=== PATIENT | male | born 1960 | race Caucasian/White ===

== ENCOUNTER 2019-09-27 22:25 | Inpatient (IN) | payer OTHER ==
[~2019-09-27] VITALS: Ht 172.7 cm; Wt 68.0 kg
[~2019-09-27 22:25] MED LIST: BUPROBAN150 MG PO; CLEOCIN HCL300 MG PO; CLOZAPINE100 M1 PO; CLOZAPINE200 MG PO; CLOZAPINE25 MG PO; DIABETA 5MG TABL5 MG GT; GLUCOTROL10 MG PO; GLUMETZA500; HYDROCHLOROTH12.5 MG PO; IRON325 M1 PO; LANTUS SOL100 UNIT/1 SQ; LIPITOR40 MG PO; LISINOPRIL2.5 MG PO; METFORMIN HCL1000 MG PO; ZOLOFT100 MG PO
[2019-09-27 22:35] VITALS: BP 160/86
[2019-09-27 23:05] LABS: HEMATOCRIT 34.5 % (42.0-52.0); HEMOGLOBIN 11.4 gm/dL (14.0-18.0); MCH 30.1 pg (26.0-34.0); MCV 91.3 fL (80.0-100.0); PLATELET COUNT 92 thou/uL (150-400); RBC 3.78 mil/uL (4.50-6.00); RDW 16.4 % (10.5-14.5); WBC 2.4 thou/uL (4.0-11.0)
[2019-09-27 23:13] LABS: CALCIUM 8.8 mg/dL (8.5-10.1); CREATININE 1.1 mg/dL (0.7-1.3); POTASSIUM 3.5 mmol/L (3.5-5.1)
[2019-09-27 23:15] LABS: APTT 35.2 Seconds (24.5-32.8); INR 1.1; PROTIME 10.8 Seconds (9.3-11.4)
[2019-09-27 23:20] LABS: ALBUMIN 3.3 g/dL (3.4-5.0); DIRECT BILIRUBIN 0.2 mg/dL (<0.1-0.2); TOTAL BILIRUBIN 0.5 mg/dL (<0.1-1.0); TOTAL PROTEIN 7.1 g/dL (6.4-8.2)
[2019-09-27 23:39] LABS: ABSOLUTE NEUTROPHILS 1.9 thou/uL (1.4-8.2)
[2019-09-27 23:40] LABS: ANISOCYTOSIS 1+; OVALOCYTES 1+; PLATELET ESTIMATE DECREASED
[2019-09-28 00:07] LABS: URINE BILIRUBIN NEGATIVE (Negative); URINE BLOOD 3+ (Negative); URINE CLARITY CLEAR; URINE COLOR YELLOW; URINE GLUCOSE-RANDOM* 2+ (Negative); URINE KETONES 1+ (Negative); URINE LEUKOCYTES-REFLEX NEGATIVE (Negative); URINE NITRITE-REFLEX NEGATIVE (Negative); URINE PROTEIN (DIPSTICK) TRACE (Negative); URINE UROBILINOGEN 0.2 E.U./dl (0.2-1.0)
[2019-09-28 00:17] LABS: BACTERIA-REFLEX None Seen /HPF (None Seen); CRYSTALS None Seen /LPF (None Seen); HYALINE CASTS 0-3 Few /LPF (None Seen); MUCUS None Seen strn/LPF (None Seen); SQUAMOUS 0-3 Few /LPF (0-3); URINE RBC 0-2 Rare /HPF (0-2); URINE WBC-REFLEX None Seen /HPF (0-5)
[2019-09-28] MEDS ORDERED: REVLIMID5 MG PO (01:01)
[2019-09-28] MEDS ORDERED: ASA81BEC PO (03:08)
[2019-09-28 05:14] LABS: HEMATOCRIT 30.5 % (42.0-52.0); HEMOGLOBIN 10.4 gm/dL (14.0-18.0); MCH 30.8 pg (26.0-34.0); MCHC 34.2 g/dL (28.0-37.0); MCV 90.1 fL (80.0-100.0); RBC 3.39 mil/uL (4.50-6.00); RDW 16.1 % (10.5-14.5); WBC 2.2 thou/uL (4.0-11.0)
[2019-09-28 05:33] LABS: CALCIUM 8.4 mg/dL (8.5-10.1); CREATININE 1.1 mg/dL (0.7-1.3); POTASSIUM 3.4 mmol/L (3.5-5.1)
--- NOTE | 2019-09-28 14:12 | NUR ---
PT ORIENTED TO ROOM 14 ED HOLD. BED LOW AND LOCKED, SIDE RAILS UPX3, CALL LIGHT IN REACH. PT DENIES SOB OR PAIN AT THIS TIME. SKIN WD, PULSES ARE PALPABLE. TELE REVEAL NSR. WILL CONTINUE TO ASSESS.
--- NOTE | 2019-09-28 15:25 | NUR ---
PT COPY AND PRINT ASSOCIATE NUMBER IS [phone].
[2019-09-28 17:40] VITALS: BP 142/76
--- NOTE | 2019-09-28 17:45 | NUR ---
CALLED REPORT TO [facility].
[2019-09-28 17:58] VITALS: BP 141/84
[2019-09-28 19:39] VITALS: BP 121/71
--- NOTE | 2019-09-28 20:42 | NUR ---
Arrived around 1800, A/O, calm and cooperative; denied pain. vss, afebrile. Photos of the scrach on the forhead and both knee had not been taken until the shift report, the night nurse is aware.
--- NOTE | 2019-09-29 02:55 | NUR ---
PT CARE ASSUMED WITH PT IN BED.PT IS A/O AND FORGETFUL.PT IS UP WITH SBA WITH GAIT BELT TO THE BATHROOM.PT GAIT IS UNSTEADY GAIT.WILL CONTINUE TO MONITOR PER POC
[2019-09-29 07:15] VITALS: BP 132/67
[2019-09-29 10:20] LABS: HEMATOCRIT 35.2 % (42.0-52.0); HEMOGLOBIN 11.7 gm/dL (14.0-18.0); MCH 30.2 pg (26.0-34.0); MCHC 33.2 g/dL (28.0-37.0); MCV 91.2 fL (80.0-100.0); RBC 3.86 mil/uL (4.50-6.00); RDW 16.2 % (10.5-14.5); WBC 2.3 thou/uL (4.0-11.0)
[2019-09-29 10:38] LABS: CALCIUM 8.8 mg/dL (8.5-10.1); CREATININE 1.1 mg/dL (0.7-1.3); MAGNESIUM 1.6 mg/dL (1.8-2.4); POTASSIUM 3.8 mmol/L (3.5-5.1)
--- NOTE | 2019-09-29 15:12 | NUR ---
PT ADMITTED RELATED TO WEAKNESS, HYPOGLYCEMIA, FREQ FALLS, AND LEUKOPENIA. CM REVIEWED CHART AND SPOKE WITH CARE TEAM. CM MET WITH PT AT BEDSIDE THIS DAY. PT IS A&O X4. CM ROLE INTRODUCED. PT INDICATED HE LIVES IN AN ASSISTED LIVING APARTMENT COMMUNITY CALLED [facility]. PT INDICATED HE USES A FWW TO ASSIST WITH MOBILITY. PT INDICATED HE HAD GOTTEN ASSISTANCE WITH HIS MEDS AND HAD PARTICIPATED IN GROUPS AT [facility]. PT INDICATED HE HAD BEEN FOR POST ACUTE CARE STAYS AT [facility] AND [facility] IN THE PAST. PT IS RECEPTIVE TO GOING TO [facility] AGAIN IF RECOMMENDED. PT INDICATED HIS [facility] COMPUTER TYPESETTER KEYLINER ALINA GIPSON IS A GOOD CONTACT FOR HIM. PT CURRENTLY ON CHEMO DRUG. CM SPOKE WITH ALINA AND INDICATED THAT CM WOULD FOLLOW UP WITH HER REGARDING DC NEEDS. REFERRAL TO BE SENT TO [facility] FOR REVIEW FOR POSSIBLE ADMISSION.
--- NOTE | 2019-09-29 15:55 | NUR ---
DISCHARGE PLANNING. POST ACUTE RECOMMENDED AT DISCHARGE. PATIENT REFERRAL FAXED TO [facility] PER REQUEST. CALL PLACED TO [facility], TO NOTIFY. MAHI TO REVIEW AND NOTIFY. AWAITING RESPONSE.
[2019-09-29 19:09] VITALS: BP 129/78
--- NOTE | 2019-09-30 02:11 | NUR ---
PT CARE ASSUMED WITH PT IN CHAIR WATCHING TV.PT ASKED TO TAKE A SHOWER AND PAN SHAKER ASSISTED PT WITH SHOWER.PT VERY HAPPY AND SAYS HE FEELS NEW.PT IS A/O X4.IV ACCESS ON RAC /SL.PT IS ACCUCHECK ACHS WITH NO SLIDING SCALE.PT IS AWAITING PLACEMENT TO ASSITED LIVING PT LIVES ALONE AND UNABLE TO CARE FOR SELF ALONE.WILL CONTINUE TO MONITOR POC
[2019-09-30 07:28] LABS: HEMATOCRIT 31.6 % (42.0-52.0); HEMOGLOBIN 10.8 gm/dL (14.0-18.0); MCH 30.8 pg (26.0-34.0); MCHC 34.3 g/dL (28.0-37.0); RBC 3.51 mil/uL (4.50-6.00); RDW 15.7 % (10.5-14.5); WBC 2.5 thou/uL (4.0-11.0)
--- NOTE | 2019-09-30 07:41 | HC ---
[facility] [place] [address] CONSULTATION Name: RAJANI NAVARRO Fritz Room #: 458-P [facility] IN .R.#: [id number] Admission: 09/28/19 Attend Phys: Sunny Corey MD Discharge: Date of : 60 Report #: [id number] THIS REPORT FOR: cc: Maryjane Mccain MD, Melanie MD McKittrick, Richard James MD ~ CC: Brandon Barragan MD DATE OF SERVICE: 09/28/2019 REQUESTING PHYSICIAN: Alexander Barragan MD REASON FOR CONSULT: Multiple myeloma. HISTORY OF PRESENT ILLNESS: The patient is a pleasant 59-year-old gentleman with history of schizophrenia who reports that he has a history of multiple myeloma. He had been in a living arrangement facility from [facility], complained of weakness and frequent falling about the last 2-3 days. There had been a question about whether his sugars might have been low as he had run out of test strips. He had had a mild flu bug and cough by his report with coughing for the last several weeks with decreased appetite, though his thinks his weight had been stable. He is unable to check his blood sugars. He says that he had had fevers, but he mentions maybe 99. No headaches. No vision troubles. Does also knows where he fell and hit himself. No mouth sores. Did have a cough. He said it is mostly nonproductive, occasionally bringing up some little bits of phlegm. He is not aware of any blood in his urine or stool. No skin rash. No ankle swelling. He does describe some neuropathy, mostly in his feet and lower legs. None in his hands or feet. The patient reports he thinks that Dr. Barrios has been happy with his myeloma. He is on Revlimid 10 mg maintenance 21 out of 28 days. He just had restarted another cycle. We will obtain records. PAST HISTORY: Notable for the multiple myeloma with a history of reports of stem cell therapy and chemotherapy and the recent Revlimid, like to check the status, but he says Dr. Barrios has been happy with his report. The patient also has a history of supposedly diabetes type 2, also mild anemia, hypertension, hyperlipidemia, schizophrenia, and also recent anemia. 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 He was born in [place]. He stopped smoking some time [address] [place] [address] CONSULTATION Name: RAMONRAJANI D Room #: 458-P [facility] IN ..#: [id number] Admission: 09/28/19 Attend Phys: Sunny Corey MD Discharge: Date of : 60 Report #: [id number] ago. Also stopped drinking alcohol some 20+ years ago if I understand correctly. FAMILY HISTORY: Father had prostate cancer. Mother had leukemia. Siblings without cancer. No children, not . LABORATORY DATA: Blood tests here in the Emergency Room included a BUN of 28, creatinine of 1.1. INR of 1.1. APTT 35.2, slightly elevated hemoglobin 10.4 after hydration. White count 2.2, ANC 1.9 thousand, platelets 492, they are 102. UA had 3+ blood, no bacteria or white cells. ALT slightly elevated at 92. AST slightly elevated at 243, albumin 3.3. Chest x-ray, nonacute process. Had a CT head without contrast, no acute process. CT C-spine and face without fractures if I understand correctly. MEDICATIONS: Currently include atorvastatin, calcium 40 mg at bedtime, metformin 1000 b.i.d., bupropion 150 b.i.d., Zoloft 100 daily, iron sulfate 325 t.i.d., Revlimid 10 mg days 1 through 21 out of 28 days, p.r.n. electrolytes, p.r.n. MiraLax, Tylenol, Zofran. PHYSICAL EXAMINATION: GENERAL: The patient appears his stated age. VITAL SIGNS: His height is 5 feet 8 inches, 172.7 cm. Weight 150 pounds or 68.04 kilograms. Recent blood pressure is 140/77, O2 sat 96%, respirations 18, pulse 76, temperature 97.8. MOOD: The patient is alert and pleasant, conversant. NEUROLOGIC: Speech and thought pattern appear to be normal. He is moving extremities. HEENT: Oropharynx has upper dentures in place. Normal moisture, though may be slightly dry. LYMPHATICS: No enlarged lymph nodes in the supraclavicular, cervical, axillary or inguinal region. ABDOMEN: Scaphoid without masses, nontender. EXTREMITIES: Without clubbing, cyanosis or edema. The patient does describe some slight decreased sensation in his feet, calves, and front of thighs when queried at on exam. ASSESSMENT AND PLAN: 1. Reported history of multiple myeloma, on maintenance Revlimid. We will obtain records. The patient reports doctor has been happy. We will continue same therapy as his absolute neutrophil count has been acceptable. 2. Falling, may have been related to hyperglycemia and virus illness with decreased intake. We will see how he does with physical therapy. 3. Mild neuropathy. Continue monitoring. 4. Diabetes type 2. Oral agents and sliding scale insulin and diet as needed. 5. Anemia, iron replacement. 6. Hypertension. Medications per others. [facility] [address] [place] [address] CONSULTATION Name: RAJANI NAVARRO Room #: 458-P [facility] IN M.R.#: [id number] Admission: 09/28/19 Attend Phys: Sunny Corey MD Discharge: Date of : 60 Report #: [id number] 7. Hyperlipidemia, statins as per others. 8. Schizophrenia/mood disorder. Continues bupropion and Zoloft. 9. Prophylaxis. Consider deep venous thrombosis prophylaxis. We will follow with you. <ELECTRONICALLY SIGNED> By: Sal Sun MD 09/30/19 [id number] [id number] Sal Sun MD /nt
[2019-09-30 07:43] LABS: CALCIUM 8.9 mg/dL (8.5-10.1); CREATININE 1.1 mg/dL (0.7-1.3); MAGNESIUM 1.9 mg/dL (1.8-2.4); POTASSIUM 3.9 mmol/L (3.5-5.1)
[2019-09-30 07:45] VITALS: BP 129/76
[2019-09-30 07:59] VITALS: BP 134/70
[2019-09-30] MEDS ORDERED: MAGNESIUM400 MG PO (09:44)
--- NOTE | 2019-09-30 15:35 | NUR ---
[facility] CAN ACCEPT PT BUT HAVE INDICATED THAT THEY WON'T HAVE A PRIVATE ROOM OPEN UNTIL TOMORROW. ANTICPATE DC TO [facility] TOMORROW. CM TO FOLLOW INDICATED WITH DC PLANNING.
[2019-09-30 16:40] VITALS: BP 125/84
--- NOTE | 2019-09-30 20:16 | NUR ---
PATIENT ALERT AND ORIENTED WITH SOME CONFUSION AND SEEMS TO NO BE ABLE TO UNDERSTAND INFORMATION PRESENTED TO HIM. PATIENT WANTED TO GET DRESSED AND REMOVE HIS PVI EVEN THOUGH HIS DISCHARGE DATE IS TOMORROW. PER CM, IS TO [place] TOMORROW TO [facility]. PATIENT IS UNSTEADY ON FEET. HE STATES HE WOULD LIKE TO WALK WITH STAFF.
[2019-09-30 20:18] VITALS: BP 144/65
[2019-10-01 07:35] VITALS: BP 126/65
--- NOTE | 2019-10-01 07:46 | NUR ---
PROGRESS PT A/O X 4 UP AD DARREL DENIES PAIN VSS, TOLERATING DIET ACCUCHECKS CONTINUE PT WAITING TO [place] TO [facility].
[2019-10-01 15:41] VITALS: BP 122/57
--- NOTE | 2019-10-01 16:49 | NUR ---
PT ALERT AND ORIENTED TIMES FOUR. VSS. PT DENIES PAIN/SOA. PT TOLERATES MEDS AND MEALS. PT UP WITH WALKER. PT PROGRESSING TOWRADS POC GOALS, PLAN TO TRANSFER TO [address] [place] [address] TODAY. WILL CONTINUE TO MONITOR.
--- NOTE | 2019-10-01 16:49 | NUR ---
[facility] INIDCATED THEY CAN'T ACCEPT PT UNTIL TOMORROW. [facility] ASSESSED PT AND INDICATED THAT THEY CAN ACCEPT PT TODAY. CM NOTIFIED PT AND SPOUSE WITH HIS [facility] WET COTTON FEEDER ALINA. THEY ARE BOTH AGREEABLE WITH DC TO [facility] THIS DAY. NO OTHER CM INTERVENTION INDICATED. CASE CLOSED.
--- NOTE | 2019-10-07 15:13 | HC ---
[facility] [place] [address] [place] [address] CONSULTATION Name: RAJANI NAVARRO Fritz Room #: 458-P [facility] IN ..#: [id number] Admission: 09/28/19 Attend Phys: Sunny Corey MD Discharge: 10/01/19 Date of : 60 Report #: [id number] THIS REPORT FOR: cc: Maryjane Mccain MD,Maryjane Shirley,Moises Ragland MD ~ CC: Sunny Mccain DATE OF SERVICE: 10/01/2019 HISTORY OF PRESENT ILLNESS: The patient is a 59-year-old white male with history of multiple myeloma, on chemotherapy, diabetes mellitus, schizophrenia who has had problems with frequent falls 2-3 per day with legs giving out. He is noted to have multiple myeloma with leukopenia and he is on chemo treatment. He also has been diagnosed with mild acute bronchitis. He has hypomagnesemia for which this is being replaced. He does have weakness of his lower extremities with lower extremity distal numbness and frequent falls. We are seeing him in rehabilitation medicine consultation. PAST MEDICAL HISTORY: Includes the multiple myeloma. He has had stem cell transplant in the past with chemotherapy. He has a history of neuropathy. His past history also includes schizophrenia with OCD and ADD. HABITS: Tobacco abuse, quit greater than a year ago. No history of alcohol abuse. MEDICATIONS: Please see the full medication listing. ALLERGIES: PENICILLIN. SOCIAL HISTORY: Lives at the [facility]. He has been using a walker in his apartment. They monitor his medications. REVIEW OF SYSTEMS: No current complaints of chest pain, shortness of breath or abdominal discomfort. He has the lower extremity distal numbness and has the weakness. PHYSICAL EXAMINATION: GENERAL: He is a 59-year-old slender white male in no obvious distress. VITAL SIGNS: Last recorded temperature 98, pulse 77, respirations 19, blood pressure 126/65. The patient is alert. HEENT: Appeared to be benign. NEUROLOGIC: Cranial nerves are grossly intact. Facies are symmetric. EXTREMITIES: Functional range of motion of both upper and lower extremities. He does have decreased distal sensation of his lower extremities. [address] [address] CONSULTATION Name: RAJANI NAVARRO Room #: 458-P [facility] IN ..#: [id number] Admission: 09/28/19 Attend Phys: Sunny Corey MD Discharge: 10/01/19 Date of : 60 Report #: [id number] extremity strength is probably a grade 4 to 4-/5. Lower extremities is 4-. He has decreased coordination, however, especially with attempted rapid alternating movements of his upper extremities and toe tap of his lower extremities. He needs min assist with sit to stand and gait is min assist short distances with the front-wheeled walker. ASSESSMENT: 1. A 59-year-old white male with a multifactorial peripheral neuropathy. He has a component of multiple myeloma with chemotherapy treatment and the diabetes mellitus. 2. Gait instability with multiple falls. 3. Decreased balance and coordination. 4. History of schizophrenia. 5. Hypertension. 6. Hyperlipidemia. 7. Mild acute bronchitis. 8. Leukopenia. PLAN: Therapy evaluations are continuing. Agree with acute inpatient rehabilitation consideration. We will continue to follow along with you. <ELECTRONICALLY SIGNED> By: Moises Shirley MD 10/07/19 1513 [id number] Moises Shirley MD /[facility]
== END 2019-10-01 19:21 | DRG 842 ==
LOC: ER 22:25 → EROBS 09-28 01:31 → 4W 09-28 01:31
PROVIDERS: Emergency Medicine; Nurse Practitioner Family; ADMIT Internal Medicine
DX: C90.00 Multiple myeloma not having achieved remission (principal); D72.819 Decreased white blood cell count, unspecified; F20.9 Schizophrenia, unspecified; R29.6 Repeated falls; E11.649 Type 2 diabetes mellitus with hypoglycemia without coma; I10 Essential (primary) hypertension; E78.5 Hyperlipidemia, unspecified; E11.40 Type 2 diabetes mellitus with diabetic neuropathy, unspecified; D50.9 Iron deficiency anemia, unspecified; R26.9 Unspecified abnormalities of gait and mobility; J20.9 Acute bronchitis, unspecified; F32.9 Major depressive disorder, single episode, unspecified; E83.42 Hypomagnesemia; D64.9 Anemia, unspecified; Z80.42 Family history of malignant neoplasm of prostate; Z79.82 Long term (current) use of aspirin; Z79.84 Long term (current) use of oral hypoglycemic drugs; Z79.899 Other long term (current) drug therapy; Z88.0 Allergy status to penicillin; Z87.891 Personal history of nicotine dependence; Z80.6 Family history of leukemia
CPT/HCPCS: 10040

== ENCOUNTER 2019-10-01 16:34 | Inpatient (IN) | payer OTHER ==
[~2019-10-01] VITALS: Ht 172.7 cm; Wt 66.7 kg
--- NOTE | ~2019-10-01 | PLAN ---
[facility] [place] [address] [address] [place] [address] REHAB UNIT PLAN OF CARE Name: NAVARRORAJANI Fritz Room #: 514-P [facility] IN .R.#: [id number] Admission: 10/01/19 Attend Phys: Moises Shirley MD Discharge: Date of : 60 Report #: [id number] THIS REPORT FOR: //name// CC: Moises Mccain DATE OF SERVICE: 10/03/2019 PROGRESS NOTE/OVERALL PLAN OF CARE SUBJECTIVE: The patient is seen back today in followup. He is in no distress. Last recorded temperature is 98.8, pulse 65, respirations 17, blood pressure 127/69. He is pleasant, cooperative. He is working in therapies. Transfers are standby assistance with gait contact guard 175 feet. Lower body dressing is contact guard with upper body contact guard. We are working on balance training. He does have the premorbid decreased sensation with his peripheral neuropathy. ASSESSMENT: 1. Multifactorial peripheral neuropathy. 2. Gait instability with recurrent falls. 3. Decreased balance and coordination. 4. Mild acute bronchitis, resolving. 5. Hypertension. 6. Hyperlipidemia. 7. Schizophrenia. 8. Multiple myeloma. PLAN: The overall plan of care is based on the preadmission screen, post-admission physician evaluation and information garnered from therapy assessments. 1. Estimated length of stay is probably at least 7-10 days. 2. Medical prognosis is reasonably good. 3. Anticipated interventions includes the interdisciplinary acute inpatient rehabilitation program. 4. Anticipated functional outcomes would be for the patient to become modified independent with transfers, mobility and ADLs, so that he can hopefully return back to his prior living situation. 5. Discharge destination would be back to his assisted living facility. 6. Expected therapy by discipline includes PT and OT 1-1/2 hours per day each 5 days a week throughout the duration of the acute inpatient rehabilitation stay. By: 0944 [id number] Moises Shirley MD /PMT
[~2019-10-01 16:34] MED LIST changes: +ASA81BEC PO; +MAGNESIUM400 MG PO; +REVLIMID5 MG PO
[2019-10-01 20:00] VITALS: BP 133/63
--- NOTE | 2019-10-02 03:53 | NUR ---
NEW TO REHAB APPROX 1900 LAST EVENING. PATIENT IS FRIENDLY AND PAIN FREE. REMEMBERED TO LET US KNOW THAT HE HAS DAILY HOME MED CHEMO PILL, PATIENT IN TURN WAS REMINDED TO BE SURE TO TAKE THE JAR HOME ON DAY OF DISMISSAL. CALLING PRIOR TO GETTING UP TO TOILET MAJORITY OF THE TIME.
[2019-10-02 06:07] LABS: HEMATOCRIT 30.5 % (42.0-52.0); HEMOGLOBIN 10.3 gm/dL (14.0-18.0); MCH 30.5 pg (26.0-34.0); MCHC 33.9 g/dL (28.0-37.0); MCV 89.9 fL (80.0-100.0); RBC 3.39 mil/uL (4.50-6.00); RDW 15.7 % (10.5-14.5); WBC 3.1 thou/uL (4.0-11.0)
[2019-10-02 06:37] LABS: CALCIUM 8.7 mg/dL (8.5-10.1); CREATININE 0.9 mg/dL (0.7-1.3); POTASSIUM 3.7 mmol/L (3.5-5.1)
[2019-10-02 08:00] VITALS: BP 122/68
--- NOTE | 2019-10-02 10:00 | NUR ---
chart review. pt up in beds, a & o x 4 with some confusion and forgetfulness, pleasatn and able to make his needs know. intro dcp, and team meeting. pt reported " live ground apartment, have walker. have sw with chavo quan who monitor medication and transportation if have appointment. go to groups with [facility]. [facility] in past."/ pt and chart. will cont following as need for dc needs.
[2019-10-02 20:00] VITALS: BP 127/69
--- NOTE | 2019-10-02 20:32 | NUR ---
PATIENT ALERT AND ORIENTED AND COOPERTIVE PARITICIPATING IN REHAB. ALINA BRANDAN, PATIENT PERSONAL STARS SPECIALIST [phone] AT BEDSIDE TODAY. [facility] NURSE CHECKED ON PATIENT TODAY, PITO, . PATIENT STAYS AT [facility] AND DR FERRARA ROUNDS ON RESIDENTS.
--- NOTE | 2019-10-03 04:36 | NUR ---
ASSUMED PT CARE AROUND 193. AXOX3. IN THE BEGINNING OF THE SHIFT, PT C/O CHEST CONGESTION. CALLED [facility] SENIOR LOSS CONTROL SPECIALIST HAND CIGAR MAKER FOR HIMS AND RECEIVED NEW ORDERS. NO S/S ACUTE DISTRESS NOTED OR REPORTED AT THIS TIME. WILL CONT TO MONITOR FOR ANY CHANGES CONDITION.
[2019-10-03 08:00] VITALS: BP 120/91
--- NOTE | 2019-10-03 18:55 | NUR ---
ASSUMED PT CARE AROUND 0700. REPORTS SLEPT GOOD. AXOX3. PT C/O CHEST CONGESTION LAST NIGHT. PT IS ON MUCINEX NOW. HE SAID HE FEELS BETTER. STILL HAS SOME SORE ON CHEST. HAS NO ORDER FOR TYLENOL. OBTAINED ORDER FOR TYLENOL. PT WAS ON ACHS. NO INSULIN COVER. PT IS ON METFORMIN. OBTAINED ORDER TO CHANGE BLOOD SUGAR CHECK BID NOW. REASSESSMENT PER CHART. OT GAVE PT SHOWER THIS AM. PT UP AND PARTICIPATED WELL WITH THERAPY. UP TO DINNING ROOM FOR MEALS. MEDS TAKE WITH WATER WITHOUT DIFFICULTY. PT HAS GENERALIZED WEAKNESS. HIS GOALS CONTINUE TO WORK WITH THERAPY TO GET STRONGER. FALL PRECAUTION IN PLACE. CALL LIGHT WITHIN REACH. COOPERATE WITH STAFF. HAD BM THIS AM. CONT B&b CALL OUT APPROPRIATELY. WILL GIVE REPORT TO NIGHT NURSE TO CONTINUE TO MONITOR.
[2019-10-03 20:40] VITALS: BP 112/68
--- NOTE | 2019-10-04 04:59 | NUR ---
UP TO TOILET, REMEMBERS TO USE WALKER, SBA. REMOVED DENTURES LAST EVENING AND USED TOOTHBRUSH AGGRESSIVELY TO GUMS TO REMOVE POLIGRIP WHILE STANDING IN BATHROOM.
[2019-10-04 08:00] VITALS: BP 111/59
--- NOTE | 2019-10-04 11:28 | NUR ---
PATIENT WAS IN ROOM SITTING WHEN CARE ASSUMED. PATIENT IS ALERT AND ORIENTED X 2-3, CAN BE FORGETFUL AT TIMES. PATIENT AMBULATING WITH ASSIST OF ROLLER WALKER, AND GAIT BELT, GAIT UNSTEADY. PATIENT TOOK MORNING MEDICATIONS WHOLE IN APPLE SOURCE ONE AT A TIME, WELL TOLERATED. PATIENT IS EATING MEALS, AND DRINKING FLUID FAIRLY WELL. PRN TYLENOL GIVEN FOR NOSE PAIN RATED AT 5/10, PAIN DECREASED TO 3/10 WHEN REASSESSED. NO FURTHER COMPLAIN VOICED. VASLINE APPLIED TO NOSE PER OTHER. LCTA, RESP EVEN UNLABORED, NO SOA/CYANOSIN NOTED. BS+X4, ABD SOFT, NON-TENDER TO TOUCH. NO SIGN OF ACUTE DISTRESS NOTED AT THIS TIME, WILL MONITOR FOR SAFETY.
[2019-10-04 20:00] VITALS: BP 141/91
--- NOTE | 2019-10-05 04:46 | NUR ---
PATIENT CALLING APPROPRIATELY FOR SBA, USUALLY WITH CALL LIGHT. NEEDS TO USE WALKER FOR A STEADY GAIT. VOIDING LARGE AMOUNTS WHEN STANDING TO VOID AT TOILET. DRINKING A GOOD AMOUNT OF WATER. APPRECIATES MOISTURE BARRIER TO BRIDGE OF NOSE.
[2019-10-05 09:58] VITALS: BP 120/65
--- NOTE | 2019-10-05 19:44 | NUR ---
ASSUMED CARE AT 0700, PT A&O X 2, NO ACUTE DISTRESS NOTED. VSS O2 ON RA. PT DENIES PAIN OR DOSCOMFORT. TOLERATES MEDS WHOLE WITH WATER. NO IV ACCESS. ATE MEALS IN DINING ROOM. INCONTINENT OF B&B AT TIMES. BM TODAY. SITTING IN CHAIR, CALL LIGHT WITHIN REACH, WILL CONTINUE TO MONITOR PER POC.
[2019-10-05 19:57] VITALS: BP 136/76
--- NOTE | 2019-10-06 02:38 | NUR ---
ASSESSED AT START OF SHIFT PT SITTING IN CHAIR. UP WITH SBA TO THE BATHROOM WITH GB AND WALKER. DENIES PAIN. ON ROOM AIR AND NO S/S OF DISTRESS. FALL PREC IN PLACE PT BACK IN BED AND RESTING FOR THE NIGHT WILL CONT WITH POC TILL EOS. TAKES PILLS ONE AT A TIME WITH WATER.
[2019-10-06 08:10] VITALS: BP 120/66
--- NOTE | 2019-10-06 20:21 | NUR ---
PATIENT ALERT AND ORIENTED AND COOPERTIVE WITH POC. MAKING PROGRESS WITH POC. ALINA BRANDAN AT BEDSIDE FOR AN HOUR OR SO THIS AFTERNOON.
[2019-10-06 20:24] VITALS: BP 123/59
--- NOTE | 2019-10-07 02:27 | NUR ---
PT ALERT AND ORIENTED X 4. AMB TO BR WITH WALKER AND ASSIST X 1. UNSTEADY GAIT. PT TAKES MEDS IN APPLESAUCE WITHOUT DIFFICULTY. PT DENIES PAIN OR DISCOMFORT. BED ALARM ON FOR SAFETY. PT AWAKE MUCH OF NIGHT. DENIES ANY NEEDS.
[2019-10-07 08:00] VITALS: BP 135/76
--- NOTE | 2019-10-07 13:17 | NUR ---
team meeting, recommendation: dc ( pt, ot, st ), endo to see if pt going to need to be dc with insulin.
--- NOTE | 2019-10-07 15:13 | H ---
[facility] [place] [address] HISTORY AND PHYSICAL Name: RAJANI NAVARRO Fritz Room #: 514-P ADM IN ..#: [id number] Admission: 10/01/19 Attend Phys: Moises Shirley MD Discharge: Date of : 60 Report #: [id number] THIS REPORT FOR: //name// CC: Moises Mccain DATE OF SERVICE: 10/01/2019 HISTORY AND PHYSICAL/POSTADMISSION PHYSICIAN EVALUATION HISTORY OF PRESENT ILLNESS: The patient is admitted for acute in-hospital inpatient rehabilitation. Please see my full consult note dictation from yesterday and the full admission and history documentation. The patient has a prior history of a multifactorial peripheral neuropathy and has had problems with falls. He has multiple myeloma and has been undergoing treatment with chemotherapy with Oncology involved. He also has type 2 diabetes mellitus. He has a multifactorial peripheral neuropathy with lower extremity weakness, distal sensory decrease and has had problems with balance loss and falls with coordination and gait instability. He has been admitted for acute in-hospital inpatient rehabilitation. As far as the prior medical history, allergies, habits, please see the history and physical documentation. Of importance, the patient does have a history of schizophrenia. He has been living in an assisted living and was using a front-wheeled walker. MEDICATIONS: Please see the full medication listing. REVIEW OF SYSTEMS: See the full review of systems as noted. He does not have any chest pain, shortness of breath, abdominal discomfort. He does have the complaints of distal lower extremity numbness and some lower extremity weakness, which is not new. He has some coordination difficulties. No focal pain complaints. PHYSICAL EXAMINATION: GENERAL: He is a pleasant 59-year-old white male in no obvious distress. VITAL SIGNS: Last recorded temperature 36.7, pulse 72, respirations 20, blood pressure 122/68. NEUROLOGIC: He is alert, pleasant. He is somewhat tangential, but will follow basic 1 step commands. HEENT: Facies appeared to be symmetric, cooperative. CHEST: Sounded clear to auscultation. He might have some mild decreased breath sounds. CARDIOVASCULAR: Regular rate and rhythm. ABDOMEN: Bowel sounds positive, nontender. GENITOURINARY AND RECTAL: Deferred. [facility] [address] [place] [address] HISTORY AND PHYSICAL Name: RAJANI NAVARRO Room #: 514-P [facility] [place] [facility].#: [id number] Admission: 10/01/19 Attend Phys: Moises Shirley MD Discharge: Date of : 60 Report #: [id number] EXTREMITIES: He has functional range of motion of the upper and lower extremities with strength grade 4-/5. He does have definite problems with coordination, especially with rapid alternating movement of bilateral upper extremities and toe tap. There is no distal lower extremity edema. He has decreased sensation distally in the lower extremities. He does need assistance with basic sit to stand at least demented standby, has some decreased balance. Some mild anxiety. ASSESSMENT: A 59-year-old white male with the following problem list: 1. Multifactorial peripheral neuropathy. 2. Gait instability with recurrent falls. 3. Decreased balance and coordination. 4. Mild acute bronchitis, resolving. 5. Hypertension. 6. Hyperlipidemia. 7. Schizophrenia. 8. Multiple myeloma with schizophrenia. PLAN: The patient has been admitted for acute in-hospital inpatient rehabilitation. From my post-admission physician evaluation perspective, there are no relevant changes since the preadmission screening. Please see the previous and current functional status. As far as risk of complications, the patient has multiple medical comorbidities as noted above. Initial plan of care involves the interdisciplinary acute inpatient rehabilitation program. Measurable functional goals would be for the patient to become modified independent with transfers, mobility and ADLs, so that he can hopefully return back to his prior living situation. Prognosis is reasonably good. Estimated length of stay probably at least 1 week to 10 days, potentially longer if warranted. Potential barriers would include his multiple medical comorbidities and decreased functional status. The patient meets diagnostic criteria for an acute in-hospital inpatient rehabilitation stay. He meets the medical necessity criteria. We will have the sap ppm consultant physicians continue to follow. He does have the tolerance for therapies and has appropriate discharge goals back to the home setting. <ELECTRONICALLY SIGNED> By: Moises Shirley MD 10/07/19 1513 [id number] Moises Shirley MD /[facility]
[2019-10-07 19:16] VITALS: BP 116/64
--- NOTE | 2019-10-07 20:09 | NUR ---
ASSUMED CARE OF PT AT 0700. PT IS A&OX4 AND VITAL SIGNS ARE STABLE. PT HAS FLAT AFFECT, BUT IS APPROPRIATE WITH STAFF. ACCU CHECKS ACHS, INSULIN ORDERS STARTED TODAY, PLANS FOR D/C ON SUNDAY. ORDERS FOR UA TODAY, NO SAMPLE AT THIS TIME. FALL PRECAUTIONS IN [place]. NURSING WILL CONTINUE TO MONITOR.
--- NOTE | 2019-10-08 00:18 | NUR ---
PT ALERT AND ORIENTED X 4. AMB TO BR WITH WALKER AND ASSIST X 1 WITHOUT DIFFICULTY. [facility]A SENT TO LAB. BLOOD SUGAR 109 AT HS. PT DENIES PAIN OR DISCOMFORT. BED ALARM ON FOR SAFETY. PT CHECKED ON HOURLY ROUNDS. APPEARS TO BE SLEEPING MORE THAN LAST NIGHT.
[2019-10-08 01:01] LABS: URINE BILIRUBIN NEGATIVE (Negative); URINE BLOOD NEGATIVE (Negative); URINE CLARITY CLEAR; URINE COLOR YELLOW; URINE GLUCOSE-RANDOM* 2+ (Negative); URINE KETONES NEGATIVE (Negative); URINE LEUKOCYTES-REFLEX NEGATIVE (Negative); URINE NITRITE-REFLEX NEGATIVE (Negative); URINE PROTEIN (DIPSTICK) NEGATIVE (Negative); URINE UROBILINOGEN 0.2 E.U./dl (0.2-1.0)
[2019-10-08 04:09] LABS: CALCIUM 8.6 mg/dL (8.5-10.1); MAGNESIUM 2.1 mg/dL (1.8-2.4); POTASSIUM 3.3 mmol/L (3.5-5.1)
[2019-10-08 04:51] LABS: ABSOLUTE NEUTROPHILS 2.6 thou/uL (1.4-8.2); BASOPHILS 1.3 % (0.0-2.0); EOSINOPHILS 3.1 % (0.0-3.0); HEMATOCRIT 30.7 % (42.0-52.0); HEMOGLOBIN 10.3 gm/dL (14.0-18.0); LYMPHOCYTES 19.8 % (24.0-44.0); MCH 30.6 pg (26.0-34.0); MCHC 33.5 g/dL (28.0-37.0); MCV 91.4 fL (80.0-100.0); MONOCYTES 10.6 % (1.0-8.0); PLATELET COUNT 113 thou/uL (150-400); POLYS 65.2 % (36.0-66.0); RBC 3.36 mil/uL (4.50-6.00); RDW 16.4 % (10.5-14.5)
[2019-10-08 08:00] VITALS: BP 108/65
--- NOTE | 2019-10-08 12:58 | NUR ---
neal spoke with sw with [facility] " spent all day at rx trying to get his test strips for his dm machine refilled but they said with his insurance they need new order that it is medical nessecary to check his blood sugar more that once a day, if dr want 2 times a day or more often then need it noted so his insurance will pay, will go to has appartment and found out what kind of machine he has and let you know"/amy. will cont following as needed for dc needs.
--- NOTE | 2019-10-08 16:34 | NUR ---
ASSUMED CARE OF PT AT 0700. PT IS A&OX2, VITAL SIGNS ARE STABLE. PT DENIES PAIN AND PARTICIPATED IN SCHEDULED THERAPIES. ACCU CHECKS ACHS AND MANAGED WITH PO MEDICAITONS AND INSULIN. PTS LABOR ECONOMICS PROFESSOR TO BRING GLUCOMETER AND SUPPLIES, NURSING TO ENCOURAGE PT TO OBTAIN HIS OWN BLOOD GLUCOSE WITH HIS GLUCOMETER. NURSING TO NOTIFY FACILITY AT TIME OF DISCHARGE IF ASSISTANCE OR SUPERVISION IS NECESSARY WITH BLOOD GLUCOSE CHECKS. FALL PRECAUTIONS IN PLACE. NURSING WILL CONTINUE TO MONITOR.
[2019-10-08 19:34] VITALS: BP 125/65
--- NOTE | 2019-10-09 04:04 | NUR ---
assumed care at approx 1900 evening 10/08. pt lying in bed at change of shift dozing off and on. pt awoke for hs meds taking with applesauce tolerating well. pt up to bathroom to void tonight with walker and 1 assist. pt sleeping well in between bathroom breaks. bed alarm on and call light in reach. will continue to monitor.
[2019-10-09 08:38] VITALS: BP 129/76
--- NOTE | 2019-10-09 10:30 | NUR ---
visited with [facility]y [facility] " [facility] [place] [facility] say they did not get medical need to check bs more that 1 x a day."/[facility]. cm checked with nurse assistant quality manager who faxed and has confirmation. discuss hh choice " [facility] ok"amy. referral to be sent to [facility] ( pt,ot,nursing). will cont following as needed for dc needs.
[2019-10-09 13:51] VITALS: BP 129/76
--- NOTE | 2019-10-09 14:03 | NUR ---
DISCHARGE PLANNING. ANTICIPATED DISCHARGE TO HOME TOMORROW PER UNIT CM. HOME HEALTH RECOMMENDED. PATIENT REFERRAL FAXED TO [facility] PER REQUEST. CALL RECEIVED FROM [facility], ACCEPTING OF PATIENT AT DISCHARGE. TONG TO FACILITATE ONCE DISCHARGE/HOME HEALTH ORDERS RECEIVED. FOLLOWING.
--- NOTE | 2019-10-09 18:48 | NUR ---
PATIENT WORKED WITH ALL THERAPIES THIS SHIFT. OUT IN DINING ROOM FOR ALL MEALS. CALLS APPROPRIATELY. APPROPRIATE CONTENT OF SPEECH. UP WITH STANDBY ASSIST USING WALKER. GAIT IS BALANCED AND STEADY. FALL PRECAUTIONS IN PLACE.
[2019-10-09 20:00] VITALS: BP 136/76
--- NOTE | 2019-10-10 02:39 | NUR ---
PT ALERT AND ORIENTED X 4. AMB TO BR WITH WALKER AND ASSIST X1 WITHOUT DIFFICULTY. BLOOD SUGAR 186 AT HS. INSULIN GIVEN ORDERED. SNACK GIVEN. PT TAKES MEDS IN APPLESAUCE WITHOUT DIFFICULTY. PT DENIES PAIN OR DISCOMFORT. BED ALARM ON FOR SAFETY. PT APPEARS TO BE SLEEPING ON HOURLY ROUNDS.
[2019-10-10 09:16] VITALS: BP 120/66
[2019-10-10] MEDS ORDERED: TYLENOL325 MG PO (10:06)
[2019-10-10] MEDS ORDERED: FLONASE 0.05%50 MCG NASAL (10:06)
[2019-10-10] MEDS ORDERED: ZYRTEC10 M2 PO (10:06)
[2019-10-10] MEDS ORDERED: GLUCOTROL5 MG PO (10:06)
--- NOTE | 2019-10-10 11:32 | NUR ---
RECEIVED PT'S CARE AROUND 0730; PT. ON BED; RESTING WITH EYES CLOSED; EQUAL CHEST RISING NOTICED; DURING AM ASSESSMENT NO C/O PAIN; ABLE TO AMBULATED WITH WALKER & GAIT BELT; AM MEDICATIONS GIVEN; AOX4; D/C ORDERS ON PLACE; WORKING ON D/C ORDERS; ASSESSMENT CHARGED; FOLLOWED POC;
[2019-10-10 11:35] VITALS: BP 129/76
--- NOTE | 2019-10-10 16:52 | NUR ---
DISCHARGE NOTE: Pt discharged home today with [facility]. senior program planner faxed final discharge orders/summary. Pt's caregiver provided transportation back to his AL facility. Contact info for HH placed in pt's discharge summary. No additional SW needs identified at this time, but is available to assist should needs arise.
--- NOTE | 2019-10-13 07:01 | HC ---
[facility] [place] [address] [place] [address] CONSULTATION Name: RAMONRAJANI D Room #: 514-P [facility] IN ..#: [id number] Admission: 10/01/19 Attend Phys: Moises Shirley MD Discharge: 10/10/19 Date of : 60 Report #: [id number] THIS REPORT FOR: cc: Maryjane Mccain MD,Maryjane Jean,Kb Flaherty. PhD ~ CC: Moises Mccain DATE OF SERVICE: 10/05/2019 NEUROBEHAVIORAL STATUS EXAM ATTENDING PHYSICIAN: Moises Shirley M.D. PLANT ENGINEERING SUPERVISOR: Kb Jean, PhD. CLINICAL PRESENTATION: The patient is a 59-year-old male admitted to the [facility] for a comprehensive inpatient rehabilitation program to improve functional mobility, activities of daily living and self-care and mental status secondary to deficits from multifactorial peripheral neuropathy. He reported having recurrent falls at his home. His assessment on admission to the rehab unit is multifactorial peripheral neuropathy, gait instability with recurrent falls, decreased balance and coordination, mild acute bronchitis, hypertension, hyperlipidemia, schizophrenia and multiple myeloma. A complete description of his medical condition and history along with medications can be found in his medical record. Neuropsychological consultation was requested to provide assistance in the assessment of cognitive and emotional status and to provide recommendations and services. Prior to this most recent admission, he was living alone in an apartment. He reports that he is a high school graduate, but attended special education programming. 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 The patient has no children and never . He had 2 older brothers and 1 sister that are all . The patient indicates having had a diagnosis of paranoid schizophrenia. TECHNIQUES UTILIZED: Clinical interview, review of medical records, staff consultation and behavioral observation, mini mental status exam 2 standard version and clock drawing. EXAMINATION FINDINGS: The patient was alert and cooperative with the assessment. There is no evidence of aphasia. He does not report auditory or visual hallucinations. Anxiety and depression is described. He also reports trouble with short-term memory and word finding. He does not report sleep or appetite issues. He also denies auditory or visual hallucinations. He does [facility] [address] [place] [address] CONSULTATION Name: RAJANI NAVARRO Room #: 514-P [facility] IN ..#: [id number] Admission: 10/01/19 Attend Phys: Moises Shirley MD Discharge: 10/10/19 Date of : 60 Report #: [id number] have a remote history of alcohol and drug abuse; however, states that he has been sober for about 20 years. Performance on the MMSE 2 brief version is in the mild range of impairment with a raw score of 13 of 16 and a T score of 33. Performance on the MMSE 2 standard version was extremely low with a raw score of 21 of 30, T score of 23 and percentile rank of less than 1. He was 3/3 for initial registration, 5/5 for orientation to time and place. He was 0 of 0/3 for immediate recall of 3 items after a brief time delay and distraction. The patient was 0/5 for serial 7's, 2/2 for naming, 1/1 for repetition, 3/3 for auditory comprehension. He could read and follow a single command and write a sentence. The patient was unable to accurately copy a simple geometric design. Clock drawing shows some difficulty with visual spatial construction. The patient is presenting with deficits in cognition. Longstanding history of special education is reported along with a diagnosis of paranoid schizophrenia, which is likely to influence cognitive function. DIAGNOSTIC IMPRESSION: 1. Neurocognitive disorder -- extent to be determined, likely in the mild to moderate range. 2. Developmental disability -- intellectual disability. 3. Schizophrenia, paranoid type. RECOMMENDATIONS: The patient will likely require assistance in the management of medication, finances and nutrition. He will benefit from continued structured and supervised residential care. His mood appears pleasant and he does not appear symptomatic regarding thought disorder. Thank you very much for allowing me to provide the consultation on this patient. <ELECTRONICALLY SIGNED> By: Kb Jean, PhD 10/13/19 0701 [id number] Kb Jean, PhD /nt
== END 2019-10-10 12:00 | disposition home health service (06) | DRG 74 ==
PROVIDERS: Nurse Practitioner; ADMIT Physical Medicine & Rehabilitation
DX: E11.42 Type 2 diabetes mellitus with diabetic polyneuropathy (principal); C90.00 Multiple myeloma not having achieved remission; R26.9 Unspecified abnormalities of gait and mobility; J20.9 Acute bronchitis, unspecified; I10 Essential (primary) hypertension; E78.5 Hyperlipidemia, unspecified; F20.9 Schizophrenia, unspecified; D72.819 Decreased white blood cell count, unspecified; E83.42 Hypomagnesemia; D64.9 Anemia, unspecified; F32.9 Major depressive disorder, single episode, unspecified; Z87.891 Personal history of nicotine dependence; Z88.0 Allergy status to penicillin
CPT/HCPCS: 10112